=== PATIENT | female | born 1990 | race African-American/Black ===

== ENCOUNTER 2016-08-09 17:42 | Emergency (ER) | payer SELFPAY ==
[2016-08-09 17:47] VITALS: BP 123/76
--- NOTE | 2016-08-09 18:06 | ER Document Report ---
HPI - HPI Patient complains to provider of: toothache Onset: Other Onset/Duration: Gradual - Worse this week Quality of pain: Throbbing Pain Level: 5 Context: 26-year-old female who is visiting the area is complaining of decayed teeth with mouth pain. 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 Unable to make a dental appointment until next month. No fever or chills. No facial swelling. She states she doesn't need a work note she is going back to work tonight. No allergies. She lives in [place]> Associated Symptoms: None Exacerbated by: Other Relieved by: Denies - Cold air Similar symptoms previously: No Recently seen / treated by doctor: No - ROS ROS below otherwise negative: Yes Systems Reviewed and Negative: Yes All other systems reviewed and negative - DERM Skin Color: Normal Past Medical History - General Information source: Patient - Social History Smoking Status: Unknown if Ever Smoked Frequency of alcohol use: None Drug Abuse: None Lives with: Family Family History: Reviewed & Not Pertinent Patient has suicidal ideation: No Patient has homicidal ideation: No - Medical History Medical History: Negative Renal/ Medical History: Denies: Hx Peritoneal Dialysis Surgical Hx: Negative Vertical Provider Document - CONSTITUTIONAL Agree With Documented VS: Yes Exam Limitations: No Limitations - INFECTION CONTROL TRAVEL OUTSIDE OF THE [place] IN LAST 30 DAYS: No - HEENT HEENT: Normocephalic Notes: several molar decayed teeth, lower right decayed to pulp, 3rd molar lower left with decay, and 2nd molar top left with decay, no abscess - NECK Neck: Supple. negative: Lymphadenopathy-Left, Lymphadenopathy-Right - RESPIRATORY O2 Sat by Pulse Oximetry: 100 - NEURO Level of Consciousness: Awake, Alert, Appropriate - DERM Integumentary: Warm, Dry, No Rash Course - Vital Signs Vital signs: Temp Pulse Resp BP Pulse Ox 98.1 F 77 16 123/76 100 08/09/16 17:46 08/09/16 17:46 08/09/16 17:46 08/09/16 17:46 08/09/16 17:46 Discharge - Discharge Clinical Impression: Tooth ache, Dental decay Condition: Good Disposition: HOME, SELF-CARE Instructions: Toothache (OM), Penicillin V K ([facility]), Anti-Inflammatory Medication ([facility]), Dentist Additional Instructions: warm compress to er if worse Please complete the patient satisfaction survey if you get one, and return it.. If you do not receive a survey, then you can go to the [facility] website, [email or web address] and place your comments about your very good care. Thank you very much. It was a pleasure being your medical provider today. Prescriptions: Ibuprofen [Motrin 800 mg Tablet] 800 mg PO Q8HP PRN #30 tablet PRN Reason: Penicillin V Potassium [Penicillin Vk 500 mg Tablet] 500 mg PO QID #40 tablet
== END 2016-08-09 18:24 | disposition home or self-care (01) ==
LOC: ER 17:42
DX: K08.89 Other specified disorders of teeth and supporting structures (principal); K02.9 Dental caries, unspecified
CPT/HCPCS: 99282